=== PATIENT | male | born 1955 | race Caucasian/White ===

== ENCOUNTER 2023-07-10 17:59 | Emergency (ER) | payer OTHER ==
[2023-07-10 18:32] VITALS: TEMP 98
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
[2023-07-10 19:54] VITALS: BP 167/92; PULSE 63; RESP 16
== END 2023-07-10 20:37 | disposition home or self-care (01) ==
LOC: EC 17:59
DX: Z02.83 Encounter for blood-alcohol and blood-drug test (principal)
CPT/HCPCS: 99282